=== PATIENT | female | born 1955 | race Caucasian/White ===

== ENCOUNTER 2023-10-22 09:20 | Day surgery (SDC) | payer MEDICARE, SELFPAY ==
[2023-10-07 15:08] VITALS: BMI 37.8
--- NOTE | 2023-10-21 15:30 | P.PNAN_ITS ---
Anes - Initial Pre Proc Eval Procedure: Operation Date: 10/22/23 12:30 Proposed Procedures p Diagnostic Colonoscopy - Keven Lynn MD Date/Time: 10/21/23 15:30 Surgeon: Keven Lynn MD Pre Op Diagnosis: History of Polyps Patient Data Age: 68 Gender: F Height: 1.68 m Weight: 106.141 kg Allergies Allergy/AdvReac Type Severity Reaction Status Date / Time hydrocodone Allergy Unknown Unknown Verified 10/22/23 11:13 1 CODIENE Allergy Unknown Unknown Uncoded 10/22/23 11:13 NKFA Allergy Unknown Unknown Uncoded 10/22/23 11:13 CODEINE (Generic Allergy) Allergy Y Uncoded 10/22/23 11:13 Home Medications Medication Instructions Recorded Confirmed Type amlodipine 10 mg tablet 10 mg PO DIRECTED 10/11/23 10/22/23 History calcium 1 tab-cap PO DIRECTED 10/11/23 10/22/23 History gabapentin 100 mg capsule 100 mg PO DIRECTED 10/11/23 10/22/23 History metoprolol succinate 100 mg 100 mg PO DAILY 10/11/23 10/22/23 History capsule sprinkle, ext. release 24 hr multivitamin 1 tablet PO DAILY 10/11/23 10/22/23 History olmesartan 40 mg tablet 40 mg PO DIRECTED 10/11/23 10/22/23 History pantoprazole 40 mg tablet,delayed 40 mg PO DIRECTED 10/11/23 10/22/23 History release rosuvastatin 5 mg tablet 5 mg PO DIRECTED 10/11/23 10/22/23 History Patient hx anesthesia problems: none Family hx anesthesia problems: none Results Review: All pre-operative results and documents have been reviewed as part of the pre- operative evaluation. [facility] Past Medical History Medical History Hyperlipidemia Hypertension Surgical History Surgical History History of hysterectomy Social History Social History Smoking status: Never smoker Alcohol intake: current Drinks per week: 3 Substance use type: does not use Anes - Eval Final PreProcedure Day of Procedure 06/17/24 15:30 Patient weight: obese Heart: regular rate and rhythm Lungs: clear to auscultation Airway: Mallampati scale class II Neurological: alert and oriented Last oral intake: >/= 8 hours ASA classification: III Emergent: no Anesthetic plan: proceed Anesthesia type and monitoring: general GIVS and standard monitoring Results Review: All pre-operative results and documents have been reviewed as part of the pre- operative evaluation. Informed Consent: The patient's anesthetic plan and its attendant risks and benefits were discussed with the patient/family/POA. Questions were solicited and answers provided to the satisfaction of the patient/family/POA.
--- NOTE | 2023-10-21 21:08 | P.HP_ITS ---
History of Present Illness History of Present Illness Consent: Risks, benefits, and alternatives have been discussed and questions answered. Patient agrees to proceed with procedure. Chief complaint: History of Polyps Narrative: Kathleen Franklin is a 68 year old female with a hx of poyps. Review of Systems Review of Systems: All systems reviewed & are unremarkable except as noted in HPI and below PMFSH Past Medical History Medical History Hyperlipidemia Hypertension Surgical History Surgical History History of hysterectomy Social History Social History Smoking status: Never smoker Alcohol intake: current Drinks per week: 3 Substance use type: does not use Meds Home Medications and Allergies Home Medications Medication Instructions Recorded Confirmed Type amlodipine 10 mg tablet 10 mg PO DIRECTED 10/11/23 10/22/23 History calcium 1 tab-cap PO DIRECTED 10/11/23 10/22/23 History gabapentin 100 mg capsule 100 mg PO DIRECTED 10/11/23 10/22/23 History metoprolol succinate 100 mg 100 mg PO DAILY 10/11/23 10/22/23 History capsule sprinkle, ext. release 24 hr multivitamin 1 tablet PO DAILY 10/11/23 10/22/23 History olmesartan 40 mg tablet 40 mg PO DIRECTED 10/11/23 10/22/23 History pantoprazole 40 mg tablet,delayed 40 mg PO DIRECTED 10/11/23 10/22/23 History release rosuvastatin 5 mg tablet 5 mg PO DIRECTED 10/11/23 10/22/23 History Allergies Allergy/AdvReac Type Severity Reaction Status Date / Time hydrocodone Allergy Unknown Unknown Verified 10/22/23 11:13 1 CODIENE Allergy Unknown Unknown Uncoded 10/22/23 11:13 NKFA Allergy Unknown Unknown Uncoded 10/22/23 11:13 CODEINE (Generic Allergy) Allergy Y Uncoded 10/22/23 11:13 Exam 2 Resp: Auscultation: clear to auscultation bilaterally Cardio: Rate: regular rate Rhythm: regular rhythm GI: GI Palp: Yes Soft to palpation and No Tenderness to palpation present (GI) Assessment and Plan Assessment and plan (1) Personal history of colonic polyps: Code(s): Z86.010 - Personal history of colonic polyps Status: Acute Assessment and Plan: Colonoscopy with possible biopsy or polypectomy or cautery or injection of substances.
[2023-10-22 11:20] VITALS: BMI 37.1
[2023-10-22 11:22] VITALS: BP 133/74; PULSE 64; RESP 16; TEMP 36.6; O2SAT 100
[2023-10-22] MEDS: LACTATED RINGERS 1,000 ML 150 ML IV CONT (11:51)
[2023-10-22 12:31] VITALS: BP 78/49; PULSE 61; RESP 15; O2SAT 96
[2023-10-22 12:41] VITALS: BP 100/53; PULSE 57; RESP 16; O2SAT 99
[2023-10-22 12:51] VITALS: BP 115/60; PULSE 55; RESP 16; O2SAT 100
--- NOTE | 2023-10-22 13:48 | WPDANESPN ---
Anes - Prog Note Post-Op Date/Time: 10/22/23 13:48 Cardiovascular status: normal Respiratory status: normal Airway patency: baseline Mental status: baseline Post-Op hydration status: normal Vital Signs: Last Vital Signs Temp 36.6 C 10/22/23 11:22 Pulse 55 L 10/22/23 12:51 Resp 16 10/22/23 12:51 BP 115/60 10/22/23 12:51 Pulse Ox 100 10/22/23 12:51 O2 Del Method Room Air 10/22/23 12:51 Pain Score (VAS): 0 I/O: Intake & Output 10/21/23 10/22/23 10/22/23 23:59 07:59 15:59 Intake Total 350 Balance 350 Post-procedural complaints: none Patient Feedback: Patient satisfied with anesthetic care. Other Findings: Patient vital signs back to baseline. Patient denies nausea and vomiting. Patient's pain under control. Patient OK for discharge.
== END 2023-10-22 13:03 | disposition home or self-care (01) ==
PROVIDERS: PCP Internal Medicine; Visit Provider Internal Medicine Gastroenterology
PROC: 0DJD8ZZ Inspection of Lower Intestinal Tract, Via Natural or Artificial Opening Endoscopic (ICD-10-PCS; CPT 45378; principal; 2023-10-22 12:30)
DX: Z86.010 Personal history of colon polyps (principal); D12.8 Benign neoplasm of rectum
CPT/HCPCS: 45385

== ENCOUNTER 2023-10-23 08:03 | Outpatient (NON) | payer MEDICARE, SELFPAY | END 2023-10-23 08:04 | disposition home or self-care (01) | LOC: ANHLAB 08:05 | PROVIDERS: PCP Internal Medicine; Visit Provider Internal Medicine Gastroenterology | DX: K62.1 Rectal polyp (principal); Z86.010 Personal history of colon polyps | CPT/HCPCS: 88305 ==

== ENCOUNTER 2024-10-05 09:57 | Outpatient (CLI) | payer MEDICARE, SELFPAY ==
--- NOTE | ~2024-10-05 | XR_ITS ---
EXAM: XR lumbar spine 2-3V DATE: 10/05/2024 10:29 HISTORY: Low back pain non inj w/right leg radiculopathy . COMPARISON: X-ray chest 05/08/2016. FINDINGS: 5 nonrib-bearing lumbar-type vertebral bodies. Pedicles intact. Trace retrolistheses at L1 -2 through L3-4. 7 mm anterolisthesis at L4-5. Stable mild anterior wedge deformity at L1. Multilevel moderate disc space narrowing and mild marginal osteophytosis. Multilevel severe facet hypertrophy a nd sclerosis in the lower lumbar spine. Multilevel interspinous narrowing. Cholecystectomy clips. IMPRESSION: Multilevel moderate degenerative disc disease. Grade 1 anterolisthesis at L4-5, with trac e listheses at the remaining lumbar levels. Severe lower lumbar facet arthropathy. Reviewed, dictated and finalized at location K. IMPRESSION: Multilevel moderate degenerative disc disease. Grade 1 anterolisthe sis at L4-5, with trace listheses at the remaining lumbar levels. Severe lower lumbar facet arthropathy.
--- OUTSIDE RECORDS SUMMARY | 2024-10-05 10:47 | XMS_ITS | Clinical Summary ---
Author Organization [employer] [facility] Address [address] [place] [address] Phone Care Team Providers Care Nursing Service Director Name Role Phone Jose Harris MD Primary Care Provider Allergies Active Allergy Reactions Criticality Noted Date Comments Adhesive Tape-Silicones Rash Low 11/10/2018 Medications lisinopril (PRINIVIL) 20 mg tablet Take 20 mg by mouth daily. Active rosuvastatin (CRESTOR) 20 mg tablet Take 20 mg by mouth daily at bedtime. Active conjugated estrogens (PREMARIN) 0.625 mg tablet Take 0.625 mg by mouth daily. Active acetaminophen (TYLENOL ARTHRITIS) 650 mg Extended Release tablet Take 650 mg by mouth every 6 hours as needed for Pain. Active furosemide (LASIX) 20 mg tablet Take 20 mg by mouth daily. Active multivitamin (DAILY-CHARLES) tablet Take 1 Tablet by mouth daily. Active calcium as carbonate (CALTRATE) 1,500 mg (600 mg elemental) Tablet Take 600 mg by mouth. Active Family History Medical History Relation Name Comments Colon Cancer Father Colon Cancer Maternal Grandfather Relation Name Status Comments Father Maternal Grandfather Social History Tobacco Use Types Packs/Day Years Used Date Smoking Tobacco: Never Smokeless Tobacco: Never Alcohol Use Standard Drinks/Week Comments Yes 0 (1 standard drink = 0.6 oz pur e alcohol) Comments Unknown Sex and Gender Information Value Date Recorded Sex Assigned at Not on file Legal Sex Female 2:00 PM CDT Gender Identity Not on file Sexual Orientation Not on file Last Filed Vital Signs Vital Sign Reading Time Taken Comments Blood Pressure 138/75 12/01/2018 7:54 AM CDT Pulse 62 12/01/2018 7:54 AM CDT Temperature 36.3 C (97.4 F) 12/01/2018 7:42 AM CDT Respiratory Rate 17 12/01/2018 7:54 AM CDT Oxygen Saturation 97% 12/01/2018 7:54 AM CDT Inhaled Oxygen Concentration - - Weight 97.3 kg (214 lb 6.4 oz) 12/01/2018 6:54 A M CDT Height 167.6 cm (5' 6) 12/01/2018 6:54 AM CDT Body Mass Index 34.61 12/01/2018 6:54 AM CDT Plan of Treatment Health Maintenance Due Date Last Done Comments DTAP/TDAP/TD VACCINES (1 - Tdap) 1976 BREAST CANCER SCREENING 1997 FIT-DNA Q 3 years 2002 FIT/FOBT Q 1 year 2002 Flex Sig/CT Colonography Q 5 years 2002 PNEUMOCOCCAL VACCINE 50+ YEA RS (1 of 1 - PCV) 2007 ZOSTER VACCINE (1 of 2) 2007 OSTEOPOROSIS SCREENING 2022 COLORECTAL SCREENING 12/02/2023 12/01/2018, 12/01/2018, 12/01/2018 Colorectal Cancer Screening 12/02/2023 INFLUENZA VACCINE (#1) 2023 RSV VACCINE (60+ or ) (1 - 1-dose 75+ series) 2032 Procedures Procedure Name Priority Date/Time Associated Diagnosis Comments COLONOSCOPY REPORT 12/01/2018 7: 45 AM CDT from Last 3 Months or Most Recently Relevant to Health Maintenance Results * COLONOSCOPY REPORT (12/01/2018 7:45 AM CDT) Narrative Procedure Note Leonel Campoverde MD - 12/01/2018 7:44 AM CDT [facility] Endoscopy Patient Name: Kathleen Good Procedure Date: 12/01/2018 Date of : 1955 Admit Type: Outpatient Age: 63 Attending MD: Leonel Campoverde MD Procedure: Colonoscopy Indications: Colorectal cancer screening, avg risk family history. Prior exam in [address] Mahin Lynn at [facility] in [place], [place] without neoplasia. Providers: Leonel Campoverde MD Referring MD: Jose Harris MD Medicines: TIVA Procedure: Informed consent was obtained for the procedure, including moderate sedation after risks were discussed. Based on the pre-procedure assessment, including review of the patient's medical history, medications, allergies, and review of systems, the patient was deemed to be an appropriate candidate for sedation. A timeout was performed. Continuous ECG monitoring, pulse oximetry, blood pressure monitoring, and direct observation were performed. The Colonoscope was introduced through the anus and advanced to the cecum, identified by appendiceal orifice and ileocecal valve. The colonoscopy was performed without difficulty. The patient tolerated the procedure well. The quality of the bowel preparation was excellent. Estimated Blood Loss: Estimated blood loss was minimal. Findings: Internal hemorrhoids were seen on retroflexion. There was a benign appearing 6 mm diameter sessile distal sigmoid colon polyp completely removed via cold snare, likely small adenoma. Remainder appeared normal to the cecum. No evidence for colon cancer or inflammatory bowel disease. Cecum and ileocecal valve well visualized and appeared normal. Complications: No immediate complications. Impression: 1. Internal hemorrhoids 2. Benign appearing 6 mm diameter sessile distal sigmoid colon polyp completely removed via cold snare, likely small adenoma. 3. Otherwise normal colonoscopy. No colon cancer or inflammatory bowel disease. Recommendation: Reassurance. Await pathology. Repeat colonoscopy in 5 years for colon cancer screening if polyp is small adenoma (benign precancerous polyp as suspcted). Follow up with Dr. Harris for medical issues. Leonel Campoverde MD 12/01/2018 7:44:35 AM This report has been signed electronically. Number of Addenda: 0 Procedure Date: 12/01/2018 7:20:11 AM [id number] [address] Leonel Campoverde MD GI PROCEDURE ORDERABLES Final Re sult from Last 3 Months or Most Recently Relevant to Health Maintenance Insurance [employer] BLUE ACCESS/TRUE BLUE PPO Advance Directives For more information, please contact: [phone] * Full Code (Latest Code Status on File) Date Activated Date Inactivated Comments 12/01/2018 6:57 AM 12/01/2018 11:03 AM Care Teams Nursing Service Director Relationship Specialty Start Date End Date Jose Harris MD [address] [place] [address] PCP - General Internal Medicine 10/28/18
--- OUTSIDE RECORDS SUMMARY | 2024-10-05 10:47 | XMS_ITS | Data Portability ---
Author Organization [place] [facility] [employer], Main Office Address [address] [place] [address] Care Team Providers Care Rn Trauma Name Role Phone MARYCARMEN ROWLEY Primary Care Provider MARYCARMEN ROWLEY Referring Provider JOVANNI ZIEGLER Tenant Selector [phone] BC ECHEVERRIA Primary Care Provider [phone] BC ECHEVERRIA Referring Provider [phone] Assessment No assessment recorded. Plan of Treatment Reminders Order Date Submit Date Provider Last Modified By Organization Details Last Modified Time Details Appointments Any 15 2024 08:00A Keily Rowley MD Not available Not available Not available Any 15 2024 09:30A Keily Rowley MD Not available Not available Not available Lab vitamin D, 25-hydr oxy, total, serum 2024 025 [email or web address], [address], [place], [address], 10/05/2024 09:29:04 CMP, serum or plasma 2024 025 [email or web address], [address], [place], [address], 10/05/2024 09:29:03 CBC w/ auto diff 2024 025 [email or web address], [address], [place], [address], 10/05/2024 09:29:05 lipid panel, serum 2024 025 [email or web address] [facility], [address], [address], [place], [address], 10/05/2024 09:29:04 Referral physica l therapi st referra l - Please call patient to luis alberto myers appoint ment. Thank you 2024 025 [facility], [address], [address], [place], [address], 09/17/2024 09:23:07 dermato logist referra l 2023 024 [email or web address] Renata Gonzalez MD (Dermatology), [address] [facility] , [address], [place], [address], 02/24/2024 08:33:53 Procedures None recorde d. Surgeries None recorde d. Imaging XR, lumbosa cral spine, 2 or 3 view 2024 025 [email or web address] Not available 09/23/2024 10:03:51 MAMMO, screeni ng, digital , bilater al 2023 024 [email or web address] [facility] (Imaging), [address] [place], [address], 02/25/2024 18:00:55 Medication Orders hydroch lorothi azide 25 mg tablet 2023 024 CORNELIA [facility], [address], [address], [place], [place], [id number], 02/26/2024 11:19:29 gabapen tin 100 mg capsule 2023 024 [email or web address] [facility], [address] [place] [address], [address], [place], [place], [id number], 10/05/2024 09:13:58 Medrol (Rupert) 4 mg tablets in a dose pack 2023 024 [email or web address] [id number], [address], [place], [address], 02/26/2024 10:53:53 amoxici llin 500 mg capsule 2023 024 [email or web address] [email or web address] [id number], [address], [place], [address], 02/26/2024 10:54:08 Patient TargetsNo targets recorded. Patient InstructionsNo instructions recorded. Reason for Referral [employer] Referral for S kin lesion Referring Physician: Marycarmen Rowley, Internal Medicine, Encounter Date: 01/27/2024 Physical Therapist Referral for Low back pain Please call patient to schedule an appointment. Thank you Referring Physician: Kristin Dowling, Internal Medicine, Encounter Date: 08/26/2024 Results Created Date Observation Date Name Description Value Unit Range Abnormal Flag Note LastModifiedBy Organization Detail LastModifiedTime 03/09/20 24 03/09/2024 scree mercedes breas t le, bilat [facility] [address] [place] [address] [phone] Patizane melcohr Name: KATHLEEN GOOD Access ion #: [id number] Sex: F : 1954 5 Dictat ed By: Katherine Mariano Attend ing Physic barbara: SEAMUS ROWLEY ER Orderi Physic barbara: SEAMUS ROWLEY ER Exam Date: 2023 09:38 AM Exam Name: MG SCRN BREAST LE BILAT Admitt ing Diagno sis(es ): PROCED URE: SCREEN ING MAMMOG ELVIA WITH TOMOSY NTHESI S REASON FOR EXAM: screen ing mammog elvia COMPAR NIMCO: MG SCRN BREAST LE BILAT on DOS: 3, MG SCRN BREAST LE BILAT 3D on DOS: 2, MG SCRN BREAST LE BILAT 3D on DOS: 12/12/20 , SCREEN ING BREAST LE, BILAT 3D on DOS: 9, SCREEN ING BREAST LE, BILAT 3D on DOS: TECHNI QUE: Bilate ral CC and MLO views obtain ed. Images were obtain ed using a Digita l Tomosy nthesi s Unit. Standa rd 2D and 3D Tomosy nthesi s images were review ed. FINDIN GS: BREAST COMPOS ITION: B - There are scatte red areas of fibrog landul ar densit y. In the right breast , no asymme trical parenc hymal patter n, alberto ectura l distor tion, pleomo rphic microc alcifi cation s or masses . In the left breast , no asymme trical parenc hymal patter n, alberto ectura l distor tion, pleomo rphic microc alcifi cation s or masses . IMPRES NIDA: No findin gs of malign ashley. RECOMM ENDATI ON: Recomm end annual mammog elvia. ASSESS MENT: BIRADS : 1 - Negati ve Page 1 [facility] [address] [place] [address] Patien t Name: KATHLEEN GOOD Access ion #: [id number] Sex: F : 1954 5 Dictat ed By: Katherine Mariano Attend ing Physic barbara: LEÓN WISEMAN Physic barbara: SEAMUS ROWLEY ER Exam Date: 2023 09:38 AM Exam Name: MG SOW BREAST LE BILAT Admitt ing Diagno sis(es ): Electr onical ly Signed by: Katherine Mariano at 2023 10:14: 58 AM Page 2 [email or web address] [facility] (Imaging) [address] [place], [address], 03/11/2024 11:02:44 Result Notes None recorded. Problems Name Problem SNOMED Code Status Onset Date Resolution Date Notes Provider Name and Address Organization Details Recorded Time Disorder of shoulder 988115466 Active 2021 Not Available [facility] 3 13:07:52 Partial thickness rotator cuff tear 107685520 Active 2021 Not Available [facility] 3 13:07:52 Gastroeso phageal reflux disease 220667912 Active 2022 Not Available [facility] 3 13:07:52 Menopausa l and postmenop ausal disorders 550398960 Active 2022 Not Available [facility] 3 13:07:52 Carpal tunnel syndrome of left wrist 43711453058 9102 Active 2021 Not Available [facility] 3 13:07:52 Pain in left foot 31296982673 9107 Completed Not Available [facility] 3 18:23:55 Pain of right hip joint 61263163136 9102 Active 2022 Not Available [facility] 3 13:07:52 Vitamin D deficienc y 44001639 Active 2022 Not Available [facility] 3 13:07:52 Osteoarth ritis 421305688 Active Not Available [facility] 3 13:07:52 Obesity 845602558 Active 2022 Not Available [facility] 3 13:07:52 Exostosis 091278519 Active Not Available [facility] 3 13:07:52 Hyperlipi demia 25559897 Active 2022 Not Available [facility] 3 13:07:52 Essential hypertens ion 66602880 Active 2022 Not Available [facility] 3 13:07:52 Overactiv e urinary bladder 031267564 Active 2022 Not Available [facility] 3 13:07:52 Edema of lower extremity 492167116 Active 2022 Not Available [facility] 3 13:07:52 Skin lesion 43370558 Active 2022 Not Available [facility] 3 13:07:53 Low back pain 490660510 Active 2022 Not Available [facility] 3 13:07:52 Pain of toe of left foot 42031346664 9108 Active 2022 Not Available [facility] 3 13:07:52 Pain in toe 571307543 Active 2022 Not Available [facility] 3 13:07:52 Seasonal allergy 898471854 Active 2022 Not Available [facility] 3 13:07:52 Arthritis 8881071 Active 2022 Not Available [facility] 3 13:07:52 Squamous cell carcinoma 300318285 Active 2022 Not Available [facility] 3 13:07:52 Neuroma of foot 438643265 Active 2022 Not Available [facility] 3 13:07:52 Capsuliti s of metatarso phalangea l joint of left foot 47723515655 837909 Active 2022 Ernesto Marinelli DPM [address], [address], [place], [address] , [place] [facility] 3 10:57:51 Hammer toe 982823969 Active 2022 Ernesto Marinelli DPM [address], [address], [place], [address] , [place] [facility] [place] [facility] 3 10:58:53 Acute sinusitis 28930791 Active 2022 Magaly Wylie MA null, [place] [facility] 3 15:32:45 Neuropath y 627691559 Active 2023 Marycarmen Rowley MD [address], [address], [place], [address] , [facility] 4 10:32:46 Varicose veins of lower extremity 03296046 Active 2023 Marycarmen Rowley MD [address], [address], [place], [address] , [facility] 4 10:45:32 Folliculi tis 10167169 Active 2023 Katey Griffin MA null, [place] [facility] [place] [facility] 4 14:29:18 Papa 235712252 Active 2023 MICHAEL Lazcano, [facility] [employer] [facility] 4 15:42:56 Notes:URINARY/BLADDER/KIDNEY PROBLEMS, BACK NECK PROBLEMS Problem Notes None recorded. Procedures Surgical History Date Name Laterality Status Provider Name and Address Organization Details Recorded Time 4 Medicare Wellness CPT Code, Initial completed Iris Jack RN [facility] [employer] [facility] 09/25/2023 10:50:01 3 Neuroma Injection 6217 completed Ernesto Marinelli DPM [address] [facility], [facility] [address], [place], [address], [facility] [employer] [facility] 02/18/2023 09:26:56 Imaging Results None recorded. Procedure Notes None recorded. Medical Equipment None Reported. Allergies Allergen ID Allergen Name Allergen Category Reaction Reaction Severity Criticality Documentation Date Start Date Code Code System Note Provider Name and Address Organization Details Recorded Time 82808 adhesive tape environme nt,medica tion Not available Not available Not available 02/14/2023 29809 UNK Charo Duy null, [facility] [employer] [facility] 3 15:21:29 Medications Name Sig Start Date Stop Date Status Note LastModified by Organization Details LastModified Time amoxicill in 500 mg capsule TAKE 1 CAPSULE BY MOUTH THREE TIMES A DAY FOR 7 DAYS 02/25 completed Not Available Not Available Not Available doxycycli ne hyclate 100 mg capsule TAKE 1 CAPSULE BY MOUTH TWICE A DAY FOR 7 DAYS 05/27 completed Not Available Not Available Not Available oxybutyni n chloride ER 10 mg tablet,ex tended release 24 hr TAKE 1 TABLET BY MOUTH DAILY 2024 active CHRISTOS 08/26/24 NOV 10/05/24 ok to rf Not Available Not Available Not Available azithromy vanna 250 mg tablet TAKE 2 TABLETS BY MOUTH TODAY, THEN TAKE 1 TABLET DAILY FOR 4 DAYS 04/24 completed Not Available Not Available Not Available ofloxacin 0.3 % eye drops active Not Available Not Available Not Available meloxicam 15 mg tablet 04/04 completed Not Available Not Available Not Available lisinopri l 20 mg tablet 05/29 completed Not Available Not Available Not Available bupivacai ne HCl 0.5 % (5 mg/mL) injection solution Take 8 mg by injectio n route. 04/24 completed Not Available Not Available Not Available metoprolo l succinate ER 100 mg tablet,ex tended release 24 hr TAKE 1 TABLET BY MOUTH DAILY active Not Available Not Available No t Available fexofenad ine 180 mg tablet TAKE 1 TABLET BY MOUTH EVERY DAY FOR 10 DAYS 04/24 completed Not Available Not Available Not Available hydrocodo ne 10 mg-acetam inophen 325 mg tablet 04/04 completed Not Available Not Available Not Available triamtere ne 37.5 mg-hydroc hlorothia zide 25 mg capsule 04/04 completed Not Available Not Available Not Available triamcino lone acetonide 0.1 % topical cream APPLY A THIN LAYER TO THE AFFECTED AREA(S) BY TOPICAL ROUTE 2 TIMES PER DAY FOR 2 WEEKS active Not Available Not Available No t Available meloxicam 7.5 mg tablet 04/04 completed Not Available Not Available Not Available oxycodone -acetamin ophen 5 mg-325 mg tablet active Not Available Not Available Not Available Kenalog 10 mg/mL suspensio n for injection In office injectio n administ ered by the provider 06/19 completed [facility]: 0003-049 08-23 Not Available Not Available Not Available amlodipin e 10 mg tablet TAKE 1 TABLET BY MOUTH DAILY active Not Available Not Available No t Available cephalexi n 500 mg capsule TAKE 1 CAPSULE BY MOUTH EVERY 6 HOURS FOR 7 DAYS 02/25 completed Not Available Not Available Not Available pantopraz ole 40 mg tablet,de layed release TAKE 1 TABLET BY MOUTH DAILY active Not Available Not Available No t Available clotrimaz ole-betam ethasone 1 %-0.05 % topical cream APPLY TO AFFECTED AREA TWICE A DAY NEEDED 02/14 completed Not Available Not Available Not Available indometha vanna 25 mg capsule TAKE 1 CAPSULE BY MOUTH THREE TIMES A DAY 09/24 completed Not Available Not Available Not Available estradiol 2 mg tablet 09/18 completed winging off Not Available Not Available Not Available diclofena c sodium 75 mg tablet,de layed release TAKE 1 TABLET TWICE A DAY BY ORAL ROUTE NEEDED. 09/24 completed Not Available Not Available Not Available hydroxyzi ne HCl 25 mg tablet active Not Available Not Available No t Available codeine 10 mg-guaife nesin 100 mg/5 mL oral liquid TAKE 1 TEASPOON FUL BY MOUTH THREE TIMES DAILY NEEDED FOR COUGH 04/24 completed Not Available Not Available Not Available hydrochlo rothiazid e 25 mg tablet TAKE 1 TABLET BY MOUTH DAILY 2024 active Not Available Not Available Not Avai lable furosemid e 20 mg tablet TAKE 1 TABLET BY MOUTH DAILY 02/25 completed Not Available Not Available Not Available gabapenti n 100 mg capsule TAKE 1 CAPSULE BY MOUTH DAILY AT BEDTIME 10/05 completed Not Available Not Available Not Available metoprolo l succinate ER 25 mg tablet,ex tended release 24 hr TAKE 1 TABLET BY MOUTH EVERY DAY 05/29 completed Not Available Not Available Not Available ergocalci ferol (vitamin D2) 1,250 mcg (50,000 unit) capsule 06/21 completed Not Available Not Available Not Available methylpre dnisolone 4 mg tablets in a dose pack TAKE 6 TABLETS ON DAY 1 DIRECTED ON PACKAGE AND DECREASE BY 1 TAB EACH DAY FOR A TOTAL OF 6 DAYS 02/25 completed Not Available Not Available Not Available lisinopri l 40 mg tablet 05/29 completed Not Available Not Available Not Available naproxen 500 mg tablet Take 1 tablet twice a day by oral route. 02/14 completed Not Available Not Available Not Available olmesarta n 40 mg tablet TAKE 1 TABLET BY MOUTH DAILY 2024 active Not Available Not Available Not Avai lable cyclobenz aprine 5 mg tablet TAKE 1 TABLET BY MOUTH THREE TIMES DAILY 09/24 completed Not Available Not Available Not Available Premarin 0.625 mg tablet 06/19 completed Not Available Not Available Not Available rosuvasta tin 5 mg tablet TAKE 1 TABLET BY MOUTH DAILY active Not Available Not Available No t Available calcium active Not Available Not Avail able Not Available Zyrtec 08/26 completed Not Available Not Available Not Available multivita min 2015 active Not Available Not Available Not Avai lable lidocaine (PF) 10 mg/mL (1 %) injection solution In office injectio n administ ered by the provider 06/19 completed [facility]: 0409-427 6-17 Not Available Not Available Not Available Flanax (naproxen ) 220 mg tablet Take 1 tablet every 12 hours by oral route. active as needed Not Available Not Available Not Available OxyContin 10 mg tablet,cr ush resistant ,extended release active Not Available Not Available Not Available Gemtesa 75 mg tablet Take 1 tablet every day by oral route. 06/21 completed Not Available Not Available Not Available Vitals Date Recorded Body weight Body mass index (BMI) Body height Body temperature Systolic blood pressure Diastolic blood pressure Provider Name and Address Organization Details Last Updated DateTime 5 231104. 61 g 37.8 kg/m2 167.64 cm 97.7 [degF] 134 mm[Hg] 72 mm[Hg] KEELY Aragon [employer] 5 10:56:57 Date Recorded Body height Body mass index (BMI) Body weight Body temperature Heart rate Oxygen saturation Oxygen saturation in Arterial blood by Pulse oximetry Systolic blood pressure Diastolic blood pressure Provider Name and Address Organization Details Last Updated DateTime 5 167.64 cm 37.6 kg/m2 492415. 02 g 97.8 [degF] 87 /min 97.01 % 97.01 % 124 mm[Hg] 86 mm[Hg] Scarlet taylor [place] [employer] [facility] [employer] 5 10:58:08 Date Recorded Body height Body mass index (BMI) Body weight Body temperature Oxygen saturation Oxygen saturation in Arterial blood by Pulse oximetry Heart rate Systolic blood pressure Diastolic blood pressure Provider Name and Address Organization Details Last Updated DateTime 5 167.64 cm 37.4 kg/m2 071363. 43 g 97.1 [degF] 94 % 94 % 60 /min 120 mm[Hg] 72 mm[Hg] Tamara myers [employer] 5 09:00:15 Date Recorded Body height Body mass index (BMI) Body weight Body temperature Heart rate Oxygen saturation Oxygen saturation in Arterial blood by Pulse oximetry Systolic blood pressure Diastolic blood pressure Provider Name and Address Organization Details Last Updated DateTime 4 167.64 cm 38.9 kg/m2 018720. 76 g 97.3 [degF] 54 /min 95 % 95 % 154 mm[Hg] 80 mm[Hg] KEELY Aragon [employer] 4 10:27:07 Date Recorded Body height Body mass index (BMI) Body weight Body temperature Heart rate Systolic blood pressure Diastolic blood pressure Provider Name and Address Organization Details Last Updated DateTime 4 167.64 cm 38.4 kg/m2 614151. 98 g 97.3 [degF] 62 /min 144 mm[Hg] 68 mm[Hg] KEELY Aragon - [employer] [facility] 4 10:53:13 Social History Question Answer Notes LastModified by Organizat ion Details LastModified Time Tobacco Smoking Status Never Smoker Not Available [facility] 07/04/2022 18:23:05 Do You Have An Advance Directive? Yes [id number] Information not available 07/04/2022 Are You Blind Or Do You Have Difficulty Seeing? No MIGRATION.954453 8585 Information not available 07/04/2022 What Is Your Level Of Caffeine Consumption? Moderate MIGRATION.716448 3326 Information not available 07/04/2022 Are You Deaf Or Do You Have Serious Difficulty Hearing? No MIGRATION.623833 5133 Information not available 07/04/2022 What Type Of Diet Are You Following? REGULAR MIGRATION.314686 7861 Information not available 07/04/2022 What Is The Highest Grade Or Level Of School You Have Completed Or The Highest Degree You Have Received? [id number] MIGRATION.115234 3146 Information not available 07/04/2022 Have There Been Any Changes To Your Family Or Social Situation? No MIGRATION.506617 1472 Information not available 07/04/2022 What Is The Fluoride Status Of Your Home? Unknown [email or web address] Information not available 09/25/2023 Do You Use Insect Repellent Routinely? No MIGRATION.503134 7074 Information not available 07/04/2022 Where Do You Live? Single[place]House MIGRATION.639543 1529 Information not available 07/04/2022 Are You Able To Care For Yourself? Yes [email or web address] Information not available 09/25/2023 Are You Blind Or Do Yo Have Difficulty Seeing? No [email or web address] Information not available 09/25/2023 Are You Deaf Or Do You Have Serious Difficulty Hearing? No [email or web address] Information not available 09/25/2023 Live Alone Of With Others? With Others [email or web address] Information not available 09/25/2023 What Was The Date Of Your Most Recent Tobacco Screening? 09/25/2023 [email or web address] Information not available 09/25/2023 Do You Have Any Pets? No MIGRATION.702797 8991 Information not available 07/04/2022 What Is Your Relationship Status? MIGRATION.491888 9921 Information not available 07/04/2022 Do You Have Smoke And Carbon Monoxide Detectors In Your Home? Yes MIGRATION.833781 6224 Information not available 07/04/2022 Are You Passively Exposed To Smoke? No MIGRATION.364296 1259 Information not available 07/04/2022 Are There Any Smokers In Your House? No MIGRATION.994880 4325 Information not available 07/04/2022 Do You Use Sunscreen Routinely? No MIGRATION.563068 6467 Information not available 07/04/2022 Have You Recently Traveled Abroad? No MIGRATION.882380 2749 Information not available 07/04/2022 Do You Have Difficulty Walking Or Climbing Stairs? No MIGRATION.711920 9788 Information not available 07/04/2022 Do You Have Any Dietary Restrictions? No MIGRATION.946036 3971 Information not available 07/04/2022 Sex: Female Functional Status Question Answer Note LastModified by Organizat ion Details LastModified Time Do you use any illicit or recreational drugs? No MIGRATION.810962 5996 Information not available 07/04/2022 Do you or have you ever used any other forms of tobacco or nicotine? No MIGRATION.302882 1347 Information not available 07/04/2022 What is your level of alcohol consumption? Occasional MIGRATION.541884 7377 Information not available 07/04/2022 Do you have transportation difficulties? No MIGRATION.568134 1052 Information not available 07/04/2022 Are you able to walk? YESWOREST MIGRATION.030081 0418 Information not available 07/04/2022 Do you have difficulty doing errands alone? No MIGRATION.995816 2067 Information not available 07/04/2022 Are you able to care for yourself? 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 No MIGRATION.884822 6183 Information not available 07/04/2022 What is your exercise level? None MIGRATION.711317 4134 Information not available 07/04/2022 Mental Status Question Answer Note LastModified by Organizat ion Details LastModified Time Do you feel stressed (tense, restless, nervous, or anxious, or unable to sleep at night)? [id number] MIGRATION.00575626 26 Information not available 07/04/2022 Do you have difficulty concentrating, remembering or making decisions? No MIGRATION.78706181 26 Information not available 07/04/2022 Family History Relationship Description Onset Age of this Age Resolved Age Notes LastModified by Organization Details LastModified Time Mother Family history of malignant neoplasm MIGRATION.[id number] Not available 07/04/2022 18:23:16 Mother Hypertensive disorder MIGRATION.[id number] Not available 07/04/2022 18:23:16 Mother Arthritis [email or web address] Not available 02/14/2023 15:38:06 Father Family history of malignant neoplasm [email or web address] Not available 2022 15:38:29 Medical History Condition Response ARTHRITIS Y ALLERGIES/HAYFEVER Y HIGH CHOLESTEROL / HYPERLIPIDEMIA Y BACK / NECK PROBLEMS Y HYPERTENSION Y CANCER: SPECIFY Y URINARY/BLADDER/KIDNEY PROBLEMS Y Gynecological HistoryNo gynecological history recorded. Obstetrics History GPAL:G 0 P 0 0 0 0 Immunizations Vaccine Type Date Status Note Provider Nam e and Address Organization Details Recorded Time influenza, unspecified formulation 01/25/2023 completed KEELY Mccollum [facility] [employer] [facility] 02/01/2023 10:35:33 SARS-COV-2 (COVID-19) vaccine, UNSPECIFIED 01/25/2023 KEELY Izaguirre [facility] 02/01/2023 10:35:58 SARS-COV-2 (COVID-19) vaccine, UNSPECIFIED 01/01/2024 eva escalante [facility] 01/10/2024 12:51:45 Past Encounters Encounter ID Performer Location Encounter Start Date Encounter Closed Date Diagnosis/Indication Diagnosis SNOMED-CT Code Diagnosis ICD10 Code Diagnosis Note [id number] MD CELINA [facility] [address] [place] [id number] 04/04/2021 00:00:00 04/04/2021 17:02:48 [id number] Wilberto Mendiola MD [facility] [address] [place], [place] [id number] 05/16/2021 00:00:00 05/16/2021 09:23:51 [id number] MD KRAIG [facility] [address] [place] [id number] 08/02/2021 00:00:00 08/15/2021 12:44:14 [id number] MD KRAIG [facility] [address] [place] [id number] 10/06/2021 00:00:00 10/06/2021 09:43:12 [id number] MD CELINA [facility] [address] [place] [address] 04/24/2022 00:00:00 04/24/2022 13:26:44 [id number] MD KRAIG Richard_GMG Internal Med [place] [address] [facility] [place] [address] 05/29/2022 00:00:00 05/29/2022 17:11:55 [id number] Marycarmen Rowley MD S_GMG Internal Med [facility] [address] [facility] [place] [address] 06/19/2022 00:00:00 06/19/2022 17:01:42 [id number] MD KRAIG Boston_GMElyssa [address], [address] [address] 06/25/2022 00:00:00 06/25/2022 14:32:09 [id number] MD CELINA RichardS_GMG Internal Med [address] [place] [address] 09/18/2022 16:16:51 09/18/2022 16:56:52 Essential hypertension 89059745 I10 on meds Hyperlipidemia 56192107 E78.5 under control Vitamin D deficiency 347 42490 E55.9 advised to take otc Obesity 493953064 E66.9 advised to lose weight, wants some meds, discussed to attend weight loss program Osteoarthritis 475169488 M19.90 OTC Tylenol Overactive urinary bladder 519978744 N32.81 meds help Gastroesop hageal reflux disease 359560116 K21.9 meds help Adult heal th examination 270189181 Z00.00 Colonoscop y- 2020- [facility] - 1 polypPAP- 2021- NLMammogra m- 2021- NLDexa- 2020Pneumo vax- 2019 ( will bring record )FLU- 2COVID- Up to date Edema of l ower extremity 104445986 R60.0 Skin lesion 92433467 L98 .9 watch for size or color change [id number] Marycarmen Rowley MD S_GMG Internal Med [address] [address] 12/26/2022 15:41:15 12/26/2022 16:08:30 Low back pain 186562145 M54.50 muscular, stretching discussed [id number] Marycarmen Rowley MD S_GMG Internal [address] [address] 02/01/2023 10:15:58 02/05/2023 10:24:32 Essential hypertension 25710316 I10 on meds Hyperlipidemia 15188323 E78.5 under control Vitamin D deficiency 347 30375 E55.9 advised to take otc Obesity 284449288 E66.9 advised to lose weight, wants some meds, discussed to attend weight loss program Osteoarthritis 412212097 M19.90 OTC Tylenol Overactive urinary bladder 853794514 N32.81 meds help Gastroesop hageal reflux disease 129570787 K21.9 meds help Adult heal th examination 325104090 Z00.00 Colonoscop y- 2020- [facility] - 1 polyp, urged to get the reportPAP- 2021- - Had total Hysterecto myMammogra - 2021- NL - DUEPrevnar 13 next timeDexa- 06/13/22Pn eumovax- 2020 ( will bring record )FLU- OV ID- Up to date Edema of l ower extremity 478605731 R60.0 better Skin lesion 92616145 L98 .9 watch for size or color change Screening mammography 24 069883 Z12.31 Pain of to e of left foot 7295504198 63364 M79.998 [id number] Ernesto Marinelli DPM [facility] [place] [address] [place] [address] 02/14/2023 15:12:46 02/18/2023 11:47:28 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 1st interspace steroid injection today- 1 cc of dexamethas one phosphate/ 1 cc of lidocaine 1% plainsuppo rtive shoe gear recommende d- such as new balancefol low-up 1 month Osteoarthritis 803163465 M19.90 Left footeducat ed on conditionR ecommend Powerstep [place] [facility] SRecommend supportive shoe gearRice therapyAnt i-inflamma tories over-the-c ounterfoll ow-up as needed [id number] Ernesto Marinelli DPM [facility] [place] [address] [place] [address] 03/18/2023 10:10:16 03/18/2023 11:20:16 Capsulitis of metatarsophalangeal joint of left foot 4710129935 0673403 M77.9 2Nd metatarsop halangeal jointRecom mend supportive insert, [employer]step [place] [employer] metRecomme nd supportive shoeAnti-i nflammator ies as neededDisc ussed topical Voltaren gelfollow- up as needed Hammer toe 103192809 M20 .41 right 2nd toediscuss ed options- denies surgeryrec ommend supportive inserts and shoe gear as aboveIf develops wounds were require surgeryFol low-up as needed [id number] Marycarmen Rowley MD [facility] [address] [place] [address] 09/25/2023 10:00:37 09/25/2023 10:53:51 Essential hypertension 28049815 I10 getting better, lose weight, salt restrictio n Hyperlipidemia 96065621 E78.5 under control Vitamin D deficiency 347 91969 E55.9 advised to take otc Obesity 609237104 E66.9 advised to lose weight, watch diet Osteoarthritis 050552675 M19.90 OTC Tylenol Overactive urinary bladder 967690928 N32.81 meds help Gastroesop hageal reflux disease 650228338 K21.9 meds help Edema of l ower extremity 394332169 R60.0 better Skin lesion 04294140 L98 .9 watch for size or color change Adult heal th examination 474830309 Z00.00 [facility]op y- [facility]- Had total Hysterecto myMammogra m- 03/06/2023 Prevnar 13 todayDexa- 06/13/22Pn eumovax- 23 in 2022, at 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 [address] 01/27/2024 10:19:36 01/27/2024 11:05:16 Essential hypertension 18135368 I10 watch, lose weight Hyperlipidemia 92575676 E78.5 watch diet Vitamin D deficiency 347 84508 E55.9 takes otc Obesity 261220275 E66.9 advised to lose weight, watch diet, diet discussed Osteoarthritis 287889377 M19.90 OTC Tylenol Overactive urinary bladder 968089613 N32.81 meds help Gastroesop hageal reflux disease 693744338 K21.9 meds help Edema of l ower extremity 574957147 R60.0 better with emds Skin lesion 56052882 L98 .9 has multiple skin moles Adult heal th examination 632036261 Z00.00 Colonoscop y- 2018 poyp removed- duePAP- 2021- NL- Had total Hysterecto myMammogra m- 03/06/2023 Prevnar 13 -Dexa- 06/13/22Pn eumovax- 23 in 2022, at [facility] ( no record )FLU- OV ID- Up to date Neuropathy 845354533 G62 .9 meds help Varicose v eins of lower extremity 33000296 I83.93 use compressio ns Acute sinusitis 64085915 J01.90 Low back pain 230656698 M54.50 lose weight Screening mammography 24 859822 Z12.31 [id number] Marycarmen Rowley MD S_G Internal Med [facility] [address] [facility] [place] [address] 02/26/2024 10:32:49 02/26/2024 11:29:54 Neuropathy 560578326 G62.9 meds help Essential hypertension 66793990 I10 lose weightstop Furosemide start HCTZ Folliculitis 60240759 L7 3.9 MUCH BETTER [id number] Marycarmen Rowley MD [facility] [place] [address] [facility] [place] [address] 05/27/2024 10:49:00 05/27/2024 11:31:02 Essential hypertension 72941066 I10 BETTER Hyperlipidemia 26520832 E78.5 watch diet Vitamin D deficiency 347 20504 E55.9 takes otc Obesity 014612938 E66.9 advised to lose weight, watch diet, diet discussed Osteoarthritis 431387804 M19.90 OTC Tylenol Overactive urinary bladder 778016526 N32.81 meds help Gastroesop hageal reflux disease 336729256 K21.9 meds help Edema of l ower extremity 523295378 R60.0 better with meds Skin lesion 16121619 L98 .9 has multiple skin moles Adult heal th examination 444750066 Z00.00 Colonoscop y- 2023, poyp ,PAP- 2021- NL- Had total Hysterecto myMammogra m- 03/09/2024 Prevnar 2023 ([facility])Dexa- 06/13/22Pn eumovax- 23 in 2022, at [facility] ( no record )Shingles- 2023 ([facility])FLU- 2023 ([facility])COVID - Up to date Neuropathy 604620071 G62 .9 meds help Varicose v eins of lower extremity 74838820 I83.93 use compressio ns Low back pain 038843625 M54.50 lose weight [id number] Marycarmen Rowley MD [facility] [address] [place] [address] 08/26/2024 10:44:50 08/26/2024 12:33:07 Low back pain 171737040 M54.50 Complete PT and re-evaluat e. Patient prefer not to begin meds. Arthritis 9905437 M19.90 Dexa- 2022, aware for update dueTaking OTC tylenol. [id number] Marycarmen Rowley MD [facility] [address] [facility] [place] [address] 10/05/2024 08:54:34 10/05/2024 09:39:58 Essential hypertension 23086820 I10 under control Hyperlipidemia 85288231 E78.5 watch diet Vitamin D deficiency 347 21372 E55.9 takes otc Obesity 252364323 E66.9 advised to lose weight, watch diet, diet discussed Osteoarthritis 121294809 M19.90 OTC Tylenol Overactive urinary bladder 969161126 N32.81 meds help Gastroesop hageal reflux disease 746347792 K21.9 meds help Edema of l ower extremity 568949040 R60.0 improved Skin lesion 47468217 L98 .9 has multiple skin moles Adult heal th examination 928308277 Z00.00 Colonoscop y- 2023, polypPAP- 2021- NL- Had total Hysterecto myMammogra m- 03/09/2024 Prevnar - 2023 ([facility])Dexa- 06/13/22Pn eumovax- 23 in 2022, at [facility] ( no record )Shingles- 2023 ([facility])FLU- 2023 ([facility])COVID - Up to date Neuropathy 190257538 G62 .9 improved Varicose v eins of lower extremity 11627102 I83.93 use compressio ns Low back pain 562402373 M54.50 lose weight, getting PT Health Concerns Section Related Observation LastModified by Organization Detai ls LastModified Time None Recorded Concern Status LastModified by Organization Details LastModified Time None Recorded Advance Directives Directive Y: Payers Encounter Date Sequence Insurance Name Policy Number Policy Carreon Covered Member ID Carreon Member ID Guarantor Name 01/27/2024 1 [facility] (MEDICARE REPLACEMENT/A DVANTAGE - HMO) [id number] Kathleen L Noemi [id number] Kathleen L Noemi 02/26/2024 1 [facility] (MEDICARE REPLACEMENT/A DVANTAGE - HMO) [id number] Kathleen L Noemi [id number] Kathleen L Noemi 05/27/2024 1 [facility] (MEDICARE REPLACEMENT/A DVANTAGE - HMO) [id number] Kathleen L Noemi [id number] Kathleen L Noemi 08/26/2024 1 [facility] (MEDICARE REPLACEMENT/A DVANTAGE - HMO) [id number] Kathleen L Noemi [id number] Kathleen L Noemi 10/05/2024 1 [facility] (MEDICARE REPLACEMENT/A DVANTAGE - HMO) [id number] Kathleen L Noemi [id number] Kathleen L Noemi Notes Date Note Type Note Provider Name and Address Organization Details Recorded Time 01/27/2024 text/html Pt is here today for her 3 month follow upAlso C/o swollen glands in her neck, has sinus pressure, no sob or chest congestion Back pain for 2 weeks after a trip where she had to walk a lot.In the past had bulging disc pper her yrs ago, some times the pain flare up. Hypertension- B/p today is 154/80Meds- Metoprolol ER 100mg daily, Olmesartan 40mg daily, Amlodipine 10mg daily Edema- Bilateral ankle swelling, meds help- Does not take every dayMeds- Furosemide 20mg dailyHyperlipidemia- on meds , labs 10/27, High TrigMeds- Rosuvastatin 5mg daily, Fish oil 1200mgGERD- controlled with meds , needs meds dailyMeds- Pantoprazole 40mg dailyVitamin D def- on meds, levels were very highMeds- otcHysterectomy- was taking Estradol, now off meds, Obesity- Has gained 7 lbsKnee pain- [facility] Did her bladder repair, 2019 had prolapsed bladder, meds help, has tried GemtesaMeds- Oxybutynin 10mg dailyOsteoarthritis- otc s/p left knee 2015, Dr Eduardo Neuropathy-Top on left foot will sometimes feel it on fire. She did Dr. Marinelli and had an injection which did not help. He did say he could do surgery but she is not willing to go that route. Has bought different shoes and that did not help either. she has no burning in the other foot.had x rays of the footMEDS helpMeds- gabapentin 100 mg qhs Multiple moles- does not want to see derm LE varicose, some discomfort, Marycarmen Rowley MD [address], [place], [address], [employer] 01/27/2024 11:00:01 02/26/2024 text/html Pt is here today for a follow up on her blood pressure.Last month her b/p was 154/80 no meds were changed and today it is 144/68.Denies any chest pains, headaches or SOB. Does C/o swollen glands on both sides of neck, no sore throat. Right leg swelling and pain is much better Marycarmen Rowley MD [address], [place], [address], [employer] 02/26/2024 11:20:00 05/27/2024 text/html Pt is here today for her 3 month follow upPT IS NOT FASTING ( [facility] ) Hypertension- controlled with medsMeds- Metoprolol ER 100mg daily, Olmesartan 40mg daily, Amlodipine 10mg daily, HCTZ Edema- Bilateral ankle swelling, meds helpMeds-HCTZHyperlip idemia- on meds , labs 10/27, High TrigMeds- Rosuvastatin 5mg daily, Fish oil 1200mgGERD- controlled with meds , needs meds dailyMeds- Pantoprazole 40mg dailyVitamin D def- on meds, levels were very highMeds- otcHysterectomy- was taking Estradol, now off meds, Obesity- Has lost 4 lbsKnee pain- [facility] Did her bladder repair, 2019 had prolapsed bladder, some improvementMeds- Oxybutynin 10mg dailyOsteoarthritis- otc s/p left knee 2015, Dr Eduardo Chronic back pain- stable Neuropathy-Top on left foot will sometimes feel it on fire. She did Dr. Marinelli and had an injection which did not help. He did say he could do surgery but she is not willing to go that route. Has bought different shoes and that did not help either.had x rays of the footMEDS helpMeds- Gabapentin 100 mg qhs Multiple moles- does not want to see derm LE varicose, some discomfort, Marycarmen Rowley MD [address], [address], [place], [address], [employer] 05/27/2024 11:32:27 08/26/2024 text/html Patient is a 69y female who presents with low back pain. Patient reports she is also having shooting pain down her lower left leg. Patient states she has tried heat, stretching, also has a random tingling sensation that goes to her left leg if she stands or physical activity. She denies injury, abdominal pain cortizone shot in knee in Patient uses heat and ice, takes otc tylenol Patient prefers not to take any additional medications. dexa scan last one 2022- aware, wants to wait MARIBEL Loo [address], [place], [address], [employer] 08/26/2024 12:12:43 10/05/2024 text/html Pt is here today for her 3 month follow upPT IS FASTING ( [facility] ) Hypertension- controlled with medsMeds- Metoprolol ER 100mg daily, Olmesartan 40mg daily, Amlodipine 10mg daily, Edema- Bilateral ankle swelling, meds helpMeds-HCTZ 25mg dailyHyperlipidemia- on meds , labs 10/27, High TrigMeds- Rosuvastatin 5mg daily, Fish oil 1200mgGERD- controlled with meds , needs meds dailyMeds- Pantoprazole 40mg dailyVitamin D def- on meds, levels were very highMeds- otcHysterectomy- was taking Estradol, now off meds, Obesity- Has lost 1 lbsKnee pain- [facility]- had bladder repair, 2019 had prolapsed bladder, still has some nocturia.Meds- Oxybutynin 10mg dailyOsteoarthritis- otc s/p left knee 2015, Dr Eduardo Chronic back pain- recently got worse, getting PT and helping Neuropathy- left foot was on fire, improved, has seen dr Hickey- was on Gabapentin 100 mg qhs, raphael snot need any more Multiple moles- does not want to see derm LE varicose, some discomfort, Marycarmen Rowley MD [address] [facility], [facility] [address], [place], [address], [place] [facility] [employer] 10/05/2024 09:19:40 OBGyn Episode No OBEpisode recorded.
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
--- OUTSIDE RECORDS SUMMARY | 2024-10-05 10:47 | XMS_ITS | Continuity of Care Document ---
Author Organization [facility] Address 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 Name Role Phone Kun Eduardo MD, MD Unavailable Unavaila ble Allergies, Adverse Reactions, Alerts Substance Reaction Status Criticality No Known Allergies Active No Inform ation Medications Medication Instructions Dosage Effective Dates (start - stop) Status Comments GABAPENTIN (unknown strength) Not Available - Active PANTOPRAZOLE SODIUM (unknown strength) Not Available - Active Vitamin D3 10 mcg (400 unit) tablet - Active amlodipine 10 mg tablet take 1 tablet by oral route every day 10 MG - Active metoprolol tartrate 100 mg tablet take 1 tablet by oral route 2 times every day with meals 100 MG - Active olmesartan 5 mg tablet take 2 tablet by oral route every day 10 MG - Active oxybutynin chloride ER 10 mg tablet,extended release 24 hr take 1 tablet by oral route every day 10 MG - Active rosuvastatin 5 mg tablet take 1 tablet by oral route every day 5 MG - Active Calcium 600 600 mg calcium (1,500 mg) tablet - Active Zyrtec-D 5 mg-120 mg tablet,extended release take 1 tablet by oral route every 12 hours 1.00 tablet - Active Tylenol Arthritis Pain 650 mg tablet,extended release take 2 tablet by oral route every 8 hours as needed swallowing whole with water. Do not break, crush, dissolve and/or chew. 1300 MG - Active MULTIVITAMINS (unknown strength) Not Available - Active furosemide 20 mg tablet take 1 tablet by oral route every day 20 MG - No Longer Active Procedures Procedure Date BMI Documented Above Normal Limit F/U Pl an Doc X-ray exam knee, 4+ views X-ray Exam Hip Unilat With Pelvis When P erf 2-3 View Office/outpatient visit,est, mod 2024 Asp/inject major joint or bursa w/o US g uidance Kenalog 40mg/mL Drain/inject major jointor bursa w/o US guidance Kenalog 40mg/mL X-ray exam knee, 4+ views X-ray Exam Hip Unilat With Pelvis When P erf 2-3 View BMI Documented Above Normal Limit F/U Pl an Doc Medical Record Copy Medical Record Copy Per Page Affidavit X-ray exam knee, 4+ views Office/outpatient visit,est, mod 2022 Asp/inject major joint or bursa w/o US g uidance Kenalog 40mg/mL X-ray Exam Hip Unilat With Pelvis When P erf 2-3 View Office/outpatient visit,new, mod 2022 Drain/inject major jointor bursa w/o US guidance Kenalog 40mg/mL X-ray exam knee, 4+ views Independent Medical Examination [facility]IL[facility] Pre Payment X-ray exam knee, 3 views X-ray Exam Hip Unilat With Pelvis When P erf 2-3 View Kenalog Triamcinolone acetonide inj Asp/inject major joint or bursa w/o US g uidance Office/outpatient visit,est, [facility] 2016 X-ray exam knee, 4+ views Depo Medrol 80 MG inj Asp/Injection, Major Joint W/ Ultrasound Office/outpatient visit,est, [facility] 2016 Advance Directives Directive Yes / No Effective Date File Name No Information Encounters Encounter Description Practice Location Reason(s) For Visit Diagnoses Date Provider Providers Copied on Encounter Office/outpa tient visit,est, [facility], [address], [id number], [place] tel:[phone] [employer] right knee and right hip (chief complaint) Pain in right hipPain in right kneeLumbagoRad iculopathy, lumbar regionUnilater al primary osteoarthritis , right knee 5 Alesha Tristan. [address], [id number], [place]. tel:[phone] Referring Provider: Justin Michaud, [address] [address], [place], [address] . tel:[phone] [facility], [address], [id number], [place] tel:[phone] [facility] No Information 4 Administrati ve Provider. [address] [place] [address], [id number], [place]. tel:[phone] Office/outpa tient visit,est, [facility], [address], [id number], [place] tel:[phone] [employer] Right knee (chief complaint) Pain in right kneeUnilateral primary osteoarthritis , right knee 3 Alesha Tristan. [address] [facility], [address], [id number], [place]. tel:[phone] Referring Provider: Justin Michaud, [address] [place], [address] . tel:[phone] Office/outpa tient visit,new, [facility], [address] [address], [place], [place], [id number], [place] tel:[phone] [facility] Right hip (chief complaint) Unilateral primary osteoarthritis , right hipTrochanteri c bursitis, right hipPain in right hip 3 Alesha Tristan. [address] [address], [place], [place], [id number], [place]. tel:[phone] Referring Provider: Justin Michaud, [address] [place] [address], [place], [address] . tel:[phone] Independent Medical Examination [facility], [address] [place] [address], [place], [place], [id number], [place] tel:[phone] [facility] left knee (chief complaint) Pain in left knee 2 Alesha Tristan. [address] [address], [place], [place], [id number], [place]. tel:[phone] [facility], [address] [place] [address], [place], [place], [id number], [place] tel:[phone] [facility] No Information 2 Alesha Tristan. [address] [address], [place], [place], [id number], [place]. tel:[phone] Office/outpa tient visit,est, [facility], [address] [address], [place], [place], [id number], [place] tel:[phone] [facility] Right hip (chief complaint) Unilateral primary osteoarthritis , right hipPain in left kneeTrochanter ic bursitis, right hip 7 Alesha Tristan. [address] [address], [place], [place], [id number], [place]. tel:[phone] Office/outpa tient visit,est, mod [facility], [address] [place], [place], [id number], [place] tel:[phone] [facility] right knee pain (chief complaint) Pain in right kneeUnilateral primary osteoarthritis , right knee Shen Deluca. [address] [facility], [place], [place], [id number], [place]. tel:[phone] Family History Family Member Type Diagnosis Age At Onset Problem (finding) Family history of Arthr itis Father Problem (finding) Cancer, unknown Mother Problem (finding) hypertension Maternal grandmother Problem (finding) Cancer, unknown Mother Problem (finding) Cancer, unknown Immunizations Vaccine Date Status Comments Pneumo (2 yrs or older)(PPV) not administered Note: pt declined ; Source: Source Unspecified influenza, injectable, quadrivalent, (3 years or older) administered Source: Source Unspe cified Payers Payer name Insurance type Covered constitution party ID Authoriza tizoila(s) AARP Medicare Advantage O PPO CI [id number] Social History Type Description Quantity Date Captured Comments Alcohol Use Details Unknown Caffeine Use Details Unknown Tobacco Use Status No Information Smoking Status No Information Non-Smoking Tobacco Use Details : No Details Available : No Details Available Sex Female Vital Signs Date / Time: Height Weight BMI Pulse Rate Blood Pressure Temperature Respiratory Rate Body Surface Area Head Circumference Head Circ. Percentile Wt./Stew. Percentile BMI percentile Pulse Ox Inhaled Ox 2:46 PM 66.00 in 104.326 kg (230.00 lbs) 37.1 2 kg/m eter (2) Chief Complaint And Reason For Visit From encounter dated '05/28/2024 14:45'. right knee and right hip (chief complaint). Description: Kathleen presents to the office today for evaluation of her chronic right knee pain and acute right pain. Her right knee pain has been present for a number of years. Denies injury, trauma, or fall within the last year. Pain in the right knee is diffusely located and feels like it is going to give out. She is experiencing a burning sensation, catching, decreased range of motion, difficulty falling asleep, giving way, limping, night pain, popping, stiffness, swelling, tenderness, tingling in her legs and weakness. The pain in her knee is rated at an 8 out of 10 with a sharp, stabbing, throbbing, aching, dull intermittent nature that is worsened with weightbearing and ambulation, ascending and descending stairs. She is utilizing elevation, ibuprofen, acetaminophen, ice, heat and compression sleeve for pain control. The pain in the righthip is been present for 3 to 4 months and she feels that it is related to changes with the way she is walking because of knee pain. The hip pain starts in the gluteal region radiates across the greater trochanteric region and into the lower extremity. It is rated at a 4 or 5 out of 10 with a sharp,stabbing, throbbing, aching, dull intermittent nature. She has been diagnosed with sciatica from her primary care physician. She is utilizing elevation, heat and positional changes for pain control as needed. She is ambulating without assistive device. Reason For Referral Reason For Referral No Information Plan Of Treatment Date Type Action Status Referral Ordered: X-ray Exam Hip Unilat With Pelvis When Perf 2-3 View RT hip ordered Referral Ordered: X-ray exam knee, 4+ views LT knee ordered Referral Ordered: X-ray Exam Hip Unilat With Pelvis When Perf 2-3 View RT ordered Referral Ordered: X-ray exam knee, 3 views LT ordered Referral Ordered: X-ray exam knee, 4+ views RT knee ordered History Of Present Illness Encounter Date Complaint History Of Prese nt Illness right knee and right hip Kathleen villegas resents to the office today for evaluation of her chronic right knee pain and acute right pain. Her right knee pain has been present for a number of years. Denies injury, trauma, or fall within the last year. Pain in the right knee is diffusely located and feels like it is going to give out. She is experiencing a burning sensation, catching, decreased range of motion, difficulty falling asleep, giving way, limping, night pain, popping, stiffness, swelling, tenderness, tingling in her legs and weakness. The pain in her knee is rated at an 8 out of 10 with a sharp, stabbing, throbbing, aching, dull intermittent nature that is worsened with weightbearing and ambulation, ascending and descending stairs. She is utilizing elevation, ibuprofen, acetaminophen, ice, heat and compression sleeve for pain control. The pain in the right hip is been present for 3 to 4 months and she feels that it is related to changes with the way she is walking because of knee pain. The hip pain starts in the gluteal region radiates across the greater trochanteric region and into the lower extremity. It is rated at a 4 or 5 out of 10 with a sharp, stabbing, throbbing, aching, dull intermittent nature. She has been diagnosed with sciatica from her primary care physician. She is utilizing elevation, heat and positional changes for pain control as needed. She is ambulating without assistive device. Right knee Sasha presents to the office today for evaluation of her chronic, nontraumatic right knee pain. Pain has been present for approximately 1 year with a waxing and waning nature but has been increasing in frequency, duration and intensity over the last few months. It is now a constant aggravation. Pain is diffusely located. She is experiencing catching, clicking and popping, crepitation, decreased in range of motion, difficulty falling asleep at night pain, giving away, limping, locking up, stiffness, swelling and weakness. Her pain is rated at a 4 out of 10 with an aching dull constant nature with intermittent sharp stabbing throbbing pain. It is worsened with range of motion, ascending and descending stairs, lifting, pushing, sitting, standing and ambulation. She is utilizing Aleve, acetaminophen, ice, IcyHot, heat, massage, bracing and rest for pain control. Denies injury, trauma, or fall within the last year. Denies fever, chills, generalized feelings of illness or malaise. She is ambulating without assistive device. Right hip Kathleen presents t o the office today for her chronic nontraumatic right hip pain. Pain has been present for 3 to 4 months with no identifiable initiating event or injury. It is predominantly located at the greater trochanteric region and radiates down to the knee. She does have a history of sciatica but is not currently experiencing any back pain. Denies groin pain. She is experiencing a burning sensation, decrease in range of motion, difficulty falling asleep, giving away, limping, night pain, numbness, popping, stiffness, swelling, tingling in both her arms and legs and weakness. Her pain is rated at a 2 or 3 out of 10 with a constant aching nature, and a 5 out of 10 with a sharp stabbing intermittent nature. It is worsened with range of motion of the hip, ascending and descending stairs, lifting items of weight, weightbearing and ambulation. She is utilizing IcyHot, Biofreeze, acetaminophen and heat for pain control with no efficacy. She is ambulating without assistive device and accompanied to the visit by her . left knee Kathleen is a 66 ye ar-old female who presents to the office for evaluation of left knee pain. Right hip Sasha is a 61- year-old female, she presents today for evaluation of her right hip. She is having lateral sided hip pain radiating down the leg. She rates her pain as a 6/10. It is worse when she lays on her right side. She denies groin pain or mechanical pain in the hip socket. She also has some questions about her left knee arthroplasty. She has a large vein on the lateral side of the knee and is thinking about doing some sclerotherapy. She has some concerns about this and wants to discuss this with me as well. She also has seen Dr. Gotti several months ago and received a cortisone injection into the right knee on 09/17/16. She is ambulating without an assistive device. Her left knee is otherwise doing well. right knee pain Ms Franklin is a 61 year old female who complains of right knee pain. She presents with pain and swelling on the right side. She states that the symptoms have been acute non-traumatic and began 2 weeks ago. Kathleen states that the symptoms began as the result of twisting. The symptoms occur constantly with intermittent worsening. The problem is worse. Currently the patient states that the symptoms are moderate-severe. The pain is described as aching, sharp and throbbing. The symptoms occur with activity. The patient is experiencing pain in the following location: generalized on the right side. She rates her current pain as 7/10. The pain does not radiate. The symptoms are aggravated by descending stairs, squatting, standing and walking. Kathleen states that the symptoms are relieved by elevation, ice, OTC medicines and rest. In addition to right knee pain the patient is also experiencing clicking, crepitus, crunching, decreased mobility and limping. Pertinent negatives include chills, erythema, fever, instability, locking and tingling. The patient has had a previous MRI. Prior NSAIDs include unspecified NSAIDS. She has had no previous treatment. There were previous episodes. Functional Status Date Functional Assessmen t No Information Instructions Date Instruction Additional Infor boubacar Kathleen will continue follow-up with her primary care physician. She will continue in physical therapy. If she does not obtain relief of pain after therapy and conservative treatments with PCP and obtains an MRI she may bring the MRI by the office to determine if referral to Dr. Kun Woodson is appropriate. She will continue her current pain control measures. Related to Radiculopathy, lumbar region Pathophysiology of t he disease process was discussed. Conservative treatment options were discussed includin) Cortisone and viscosupplementation injections2) Physical therapy, exercise and strengthening regimen with initiation of weight training and reduction to impact loading, transition to using a bike or swimming3) Rest, ice, heat, elevation, compression4) Oral and topical nonsteroidal anti-inflammatory medication and analgesic5) Weight loss6) Bracing7) Total knee arthroplastyRisks and benefits of cortisone injection were discussed. The frequency of injection schedule were discussed. At this time the patient would like to proceed with cortisone injections into the right knee. All questions were answered and concerns addressed. Halina demonstrates appropriate understanding of the diagnosis and plan of care at this time and we will see them back as neededWritten consent for the procedure was obtained. The patient was seated with the knees bent to 90 degrees of flexion. The right knee was prepped with alcohol and chlorhexidine. The skin was anesthetized with Ethyl Chloride spray and a 22 gauge needle was used to introduce 40 mg of Kenalog and 3 mL of 1% Lidocaine plain into the knee joint. The area of injection was then cleaned and a sterile bandage was placed. The procedure was completed without complication, and was well tolerated by the patient. Patient was educated on post injection care instructions and discharged in stable condition.Dictation completed with Directr software, grammatical variances and spelling errors may inadvertently occur. Related to Unilateral primary osteoarthritis, right knee Pathophysiology of t he disease process was discussed. Conservative treatment options were discussed including cortisone injections, visco supplementation injections, physical therapy, the use of ice or heat, the use of jhzp-bgq-wzyouch nonsteroidal anti-inflammatory type medications and ueln-kjp-eyybmpz pain medications, and the use of bracing. Risks and benefits of cortisone injection were discussed. The frequency of injection schedule was discussed. At this time the patient would like to proceed with cortisone injections into the right knee. Kathleen demonstrates appropriate understanding of the diagnosis and plan of care at this time and we will see them back as needed. Verbal consent for the procedure was obtained. The patient was seated with the knees bent to 90 degrees of flexion. The right knee was prepped with alcohol and chlorhexidine. The skin was anesthetized with Ethyl Chloride spray and a 22 gauge needle was used to introduce 40 mg of Kenalog and 3 mL of 1% Lidocaine plain into the knee joint. The area of injection was then cleaned and a sterile bandage was placed. The procedure was completed without complication, and was well tolerated by the patient. Patient was educated on post injection care instructions and discharged in stable condition. Dictation completed with Directr software, grammatical variances and spelling errors may inadvertently occur. Related to Unilateral primary osteoarthritis, right knee Pathophysiology of b oth trochanteric bursitis and osteoarthritic changes to the right hip joint were reviewed in depth. As she is experiencing significant pain at the greater trochanteric region with range of motion and with palpation she wishes to proceed with treatments for trochanteric bursitis and will transition to osteoarthritic treatments at a later date. Conservative treatment options were reviewed including cortisone injection into the right greater trochanteric bursa, the use of ice or heat, mief-oim-xkrkmaj pain medications and NSAIDs, massage, physical therapy. Risks and benefits of cortisone, frequency of injection schedule were reviewed in depth. Sasha demonstrates appropriate understanding and wishes to proceed with cortisone injection into the right greater trochanteric region. If she starts to experience gluteal or groin pain after injection she will notify the office and be scheduled for intra-articular joint injection under fluoroscopy. She will follow-up with our office as needed. Consent for the procedure was obtained. The patient was placed in the left lateral decubitus position. The right greater trochanter was palpated. The skin was prepped with alcohol and chlorhexidine, anesthetized with Ethyl Chloride spray and a 22 gauge needle was used to introduce 80mg of Kenalog and 3mL of 1% Lidocaine plain into the trochanteric bursal space. Pressure was held on the injection site for approximately 60 seconds after removal of needle. The area was then cleaned and a sterile bandage was placed. The procedure was completed without complication and was well tolerated by the patient. Patient was educated on post injection care instructions and discharged in stable condition. Dictation completed with Directr software, grammatical variances and spelling errors may inadvertently occur. Related to Pain in right hip The patient would li ke to proceed with an injection into the involved knee today. We discussed weight control/loss, icing, NSAIDs/Tylenol, activity modifications, and physical therapy and/or home strengthening exercises as appropriate. We discussed we could repeat an injection in 3 months (6 months for viscosupplementation) or more if needed depending on the response. We discussed possible need for total (or partial if a candidate) knee replacement in the future if non-surgical treatment fails and the patient meets medical and rehabilitation criteria. We discussed replacement would need to be delayed at least 3 months after any injection due to infection risks. The patient will follow up on an as needed basis. Questions answered, verbalized understanding. Related to Unilateral primary osteoarthritis, right knee Assessments Type Assessment Date assessment Pain in right hip assessment Pain in right knee assessment Lumbago assessment Radiculopathy, lumbar region May assessment Unilateral primary osteoarthriti s, right knee Patient Care Teams Name Effective Dates (start - stop) Status Members No Information
== END 2024-10-05 09:58 | disposition home or self-care (01) ==
PROVIDERS: PCP Internal Medicine
DX: M51.369 Other intervertebral disc degeneration, lumbar region without mention of lumbar back pain or lower extremity pain (principal); M43.16 Spondylolisthesis, lumbar region; M47.816 Spondylosis without myelopathy or radiculopathy, lumbar region
CPT/HCPCS: 72100